=== PATIENT | female | born 1995 | race Caucasian/White ===

== ENCOUNTER 2018-10-14 05:14 | Emergency (ER) | payer OTHER ==
[~2018-10-14] VITALS: Ht 175.3 cm; Wt 56.7 kg
[2018-10-14] MEDS ORDERED: Amoxicillin875 MG PO (05:43)
== END 2018-10-14 05:50 | disposition home or self-care (01) ==
LOC: ER 05:14
DX: H66.91 Otitis media, unspecified, right ear (principal); F17.210 Nicotine dependence, cigarettes, uncomplicated
CPT/HCPCS: 99282

== ENCOUNTER 2019-02-26 18:36 | Emergency (ER) | payer OTHER ==
[~2019-02-26] VITALS: Ht 175.3 cm; Wt 56.7 kg
[~2019-02-26 18:36] MED LIST: Amoxicillin875 MG PO
[2019-02-26] MEDS ORDERED: IBUP600 PO (19:57)
[2019-02-27] MEDS ORDERED: CEPH500 PO (16:38)
== END 2019-02-26 20:22 | disposition home or self-care (01) ==
LOC: ER 18:36
DX: S63.502A Unspecified sprain of left wrist, initial encounter (principal); F17.210 Nicotine dependence, cigarettes, uncomplicated; V49.9XXA Car occupant (driver) (passenger) injured in unspecified traffic accident, initial encounter; Y92.828 Other wilderness area as the place of occurrence of the external cause
CPT/HCPCS: 71046; 73110; 99284-25; A9270-GY

== ENCOUNTER 2019-02-27 13:32 | Emergency (ER) | payer OTHER ==
[~2019-02-27] VITALS: Ht 175.3 cm; Wt 56.7 kg
[~2019-02-27 13:32] MED LIST changes: +IBUP600 PO
[2019-02-27] MEDS ORDERED: CEPH500 PO (16:38)
== END 2019-02-27 20:55 | disposition home or self-care (01) ==
LOC: ER 13:32
DX: S61.542A Puncture wound with foreign body of left wrist, initial encounter (principal); F17.210 Nicotine dependence, cigarettes, uncomplicated; W45.8XXA Other foreign body or object entering through skin, initial encounter
CPT/HCPCS: 10120; 29125; 73200; 76000; 96372-59; 99284-25; J1885

== ENCOUNTER 2020-04-03 01:00 | Emergency (ER) | payer OTHER ==
[~2020-04-03] VITALS: Ht 175.3 cm; Wt 56.7 kg
[~2020-04-03 01:00] MED LIST changes: +ACET325 PO; +CEPH500 PO
[2020-04-03] MEDS ORDERED: OXYCODONE-ACET1 EAC3 (01:17)
[2020-04-03 01:42] LABS: BASOPHILS ABSOLUTE AUTO 0.02 K/mm3 (0.00-0.23); BASOPHILS PERCENT AUTO 0 % (0-2); EOSINOPHILS ABSOLUTE AUTO 0.27 K/mm3 (0.00-0.68); EOSINOPHILS PERCENT AUTO 3 % (0-6); Hematocrit 36.3 % (33.0-51.0); IMMATURE GRAN ABSOLUTE AUTO 0.01 K/mm3 (0.00-0.10); IMMATURE GRAN PERCENT AUTO 0 % (0-1); LYMPHOCYTES ABSOLUTE AUTO 1.81 K/mm3 (0.84-5.20); LYMPHOCYTES PERCENT AUTO 21 % (21-46); MONOCYTES ABSOLUTE AUTO 0.53 K/mm3 (0.16-1.47); MONOCYTES PERCENT AUTO 6 % (4-13); Mean Corpuscular HGB 30.6 pg (26.0-34.0); Mean Corpuscular HGB Conc 33.1 g/dL (31.5-36.5); Mean Corpuscular Volume 93 fL (80-100); Mean Platelet Volume 10.2 fL (9.1-12.4); NEUTROPHILS ABSOLUTE AUTO 5.88 K/mm3 (1.96-9.15); NEUTROPHILS PERCENT AUTO 69 % (41-73); Platelet Count 258 K/mm3 (150-400); RDW Coefficient Variation 13.5 % (11.7-14.2); RDW Standard Deviation 45.4 fL (35.1-46.3); Red Blood Cell Count 3.92 M/mm3 (3.80-5.20); White Blood Cell Count 8.52 K/mm3 (4.00-11.30)
[2020-04-03 01:53] LABS: Source, Urine Clean Catch
[2020-04-03 01:55] LABS: Bilirubin, Urine Neg (Neg); Blood, Urine 5+ (Neg); Glucose Qualitative, Urine Neg (Neg); Ketones, Urine Neg (Neg); Leukocyte Esterase, Urine 2+ (Neg); Nitrite, Urine Neg (Neg); Protein, Urine Neg (Neg); Specific Gravity, Urine 1.015 (1.003-1.022); Urobilinogen, Urine NORM (Normal)
[2020-04-03 02:00] LABS: Appearance, Urine Clear (Clear); Color, Urine Yellow (P-Yellow)
[2020-04-03 02:00] LABS: Alanine Aminotransfer (ALT/SGP 17 U/L (12-78); Albumin, Blood 3.8 g/dL (3.4-5.0); Albumin/Globulin Ratio 1.1 (0.8-1.8); Alk Phos 54 U/L (50-136); Anion Gap 5 mmol/L (6-16); Aspartate Aminotrans (AST/SGOT 19 U/L (12-37); Bilirubin, Total 0.3 mg/dL (0.1-1.0); Blood Urea Nitrogen 8 mg/dL (8-24); Bun/Creatinine Ratio 9.2 (12.0-20.0); CO2, Blood 29 mmol/L (21-32); Calcium, Blood 8.8 mg/dL (8.5-10.1); Chloride, Blood 108 mmol/L (98-108); Creatinine, Blood 0.87 mg/dL (0.40-1.00); Globulin, Blood 3.4 g/dL (2.2-4.0); Glomerular Filtration Rate >60 (60-); Glucose, Blood 84 mg/dL (70-99); Potassium, Blood 4.1 mmol/L (3.5-5.5); Sodium, Blood 142 mmol/L (136-145); Total Protein, Blood 7.2 g/dL (6.4-8.2)
[2020-04-03 02:02] LABS: Bacteria Mod /hpf; Squamous Epithelial Cells Few /hpf (Few)
[2020-04-03 02:37] LABS: Beta HCG, Quantitative, Serum 327 mIU/mL (0-3)
[2020-04-11] MEDS ORDERED: IBUP400 PO (21:50)
[2020-04-11] MEDS ORDERED: HYDR1TAB94 PO (21:50)
[2020-04-11] MEDS ORDERED: ONDA4ODT SL (21:50)
== END 2020-04-03 03:44 | disposition home or self-care (01) ==
LOC: ER 01:00
PROVIDERS: Emergency Medicine
DX: G89.18 Other acute postprocedural pain (principal); R10.9 Unspecified abdominal pain; F17.210 Nicotine dependence, cigarettes, uncomplicated; Z98.890 Other specified postprocedural states
CPT/HCPCS: 80053; 81001; 84702; 84703; 85025; 87086; 96361; 96374; 96375; 99284-25; A9270-GY; J1170; J2405; J7030

== ENCOUNTER 2020-04-05 05:57 | Day surgery (SDC) | payer OTHER ==
[~2020-04-05] VITALS: Ht 175.3 cm; Wt 56.7 kg
[~2020-04-05 05:57] MED LIST changes: +OXYCODONE-ACET1 EAC3
[2020-04-05 06:54] LABS: BASOPHILS ABSOLUTE AUTO 0.03 K/mm3 (0.00-0.23); BASOPHILS PERCENT AUTO 0 % (0-2); EOSINOPHILS ABSOLUTE AUTO 0.14 K/mm3 (0.00-0.68); EOSINOPHILS PERCENT AUTO 1 % (0-6); Hematocrit 36.3 % (33.0-51.0); IMMATURE GRAN ABSOLUTE AUTO 0.04 K/mm3 (0.00-0.10); IMMATURE GRAN PERCENT AUTO 0 % (0-1); LYMPHOCYTES ABSOLUTE AUTO 1.17 K/mm3 (0.84-5.20); LYMPHOCYTES PERCENT AUTO 11 % (21-46); MONOCYTES ABSOLUTE AUTO 0.55 K/mm3 (0.16-1.47); MONOCYTES PERCENT AUTO 5 % (4-13); Mean Corpuscular HGB 30.4 pg (26.0-34.0); Mean Corpuscular HGB Conc 33.1 g/dL (31.5-36.5); Mean Corpuscular Volume 92 fL (80-100); Mean Platelet Volume 9.9 fL (9.1-12.4); NEUTROPHILS ABSOLUTE AUTO 8.63 K/mm3 (1.96-9.15); NEUTROPHILS PERCENT AUTO 82 % (41-73); Platelet Count 263 K/mm3 (150-400); RDW Coefficient Variation 13.5 % (11.7-14.2); Red Blood Cell Count 3.95 M/mm3 (3.80-5.20); White Blood Cell Count 10.56 K/mm3 (4.00-11.30)
[2020-04-05 07:34] LABS: Anion Gap 6 mmol/L (6-16); Beta HCG, Quantitative, Serum 253 mIU/mL (0-3); Blood Urea Nitrogen 5 mg/dL (8-24); Bun/Creatinine Ratio 7.8 (12.0-20.0); CO2, Blood 26 mmol/L (21-32); Calcium, Blood 8.6 mg/dL (8.5-10.1); Chloride, Blood 110 mmol/L (98-108); Creatinine, Blood 0.64 mg/dL (0.40-1.00); Glomerular Filtration Rate >60 (60-); Glucose, Blood 87 mg/dL (70-99); Potassium, Blood 3.5 mmol/L (3.5-5.5); Sodium, Blood 142 mmol/L (136-145)
--- NOTE | 2020-04-05 13:00 | NUR ---
"DAY SURGERY RN | TO STEPDOWN VSS. A/O. DENIES NAUSEA. STATES CRAMPING PAIN 5/10. JUAN CARLOS-PAD HAS SCANT DRAINAGE."
--- NOTE | 2020-04-05 13:09 | NUR ---
"DAY SURGEY RN | REPORT OFF TO DARRICK GARCIA VSS. A/O. PAIN STILL 5/10. DENIES NAUSEA. ORDERS NOTED. HANDOFF COMPLETE."
--- NOTE | 2020-04-05 14:29 | NUR ---
Patient up to Ambulate independently. Gait steady. Patient States Post-Procedure ride home has been arranged. Discharged via wheelchair to private car for ride home. PT DISCHARGED HOME SCANT LOCHIA NOTED PT STATES CRAMPING IS STILL PAINFUL BUT MANAGEABLE SINCE PERCOCET
--- NOTE | 2020-04-05 14:32 | NUR ---
PT GIVEN HARDCOPY RX FOR PERCOCET, PHENERGAN AND IBUPROFEN [id number]
[2020-04-11] MEDS ORDERED: ONDA4ODT SL (21:50)
[2020-04-11] MEDS ORDERED: HYDR1TAB94 PO (21:50)
[2020-04-11] MEDS ORDERED: IBUP400 PO (21:50)
== END 2020-04-05 14:29 | disposition home or self-care (01) ==
LOC: ER 05:57 → ERHOLD 05:58 → ORSCMMR 11:21 → ERHOLD 04-07 11:23
PROVIDERS: Emergency Medicine; Obstetrics & Gynecology
PROC: 10D17ZZ Extraction of Products of Conception, Retained, Via Natural or Artificial Opening (ICD-10-PCS; principal; 2020-04-05 11:30)
DX: O03.1 Delayed or excessive hemorrhage following incomplete spontaneous abortion (principal); J45.909 Unspecified asthma, uncomplicated; F17.210 Nicotine dependence, cigarettes, uncomplicated; Z11.59 Encounter for screening for other viral diseases
CPT/HCPCS: 36415; 76856; 80048; 84702; 85025; 88305; 96374; 96375; 99285-25; J0690; J1100; J1170; J2210; J2250; J2405; J2704; J3010; J7120; U0002